=== PATIENT | female | born 1990 | race African-American/Black ===

== ENCOUNTER 2016-11-16 13:39 | Emergency (ER) | payer MEDICAID ==
[~2016-11-16] VITALS: Ht 162.6 cm; Wt 64.0 kg
[2016-11-16] MEDS ORDERED: ALBUTEROL (14:38)
[2016-11-16 14:48] VITALS: BP 129/83
== END 2016-11-16 18:56 | disposition home or self-care (01) ==
LOC: ER 18:49
DX: K08.89 Other specified disorders of teeth and supporting structures (principal); J45.909 Unspecified asthma, uncomplicated
CPT/HCPCS: 99283

== ENCOUNTER 2019-08-27 13:29 | Emergency (ER) | payer MEDICAID ==
[~2019-08-27] VITALS: Ht 162.6 cm; Wt 61.0 kg
[~2019-08-27 13:29] MED LIST: ALBUTEROL
[2019-08-27 23:11] LABS: BASOPHILS % 1.1 % (0.0-2.0); EOSINOPHILS % 4.1 % (0.0-5.0); HEMATOCRIT. 36.3 % (36.0-48.0); HEMOGLOBIN. 12.5 g/dL (12.0-16.0); LYMPHOCYTES % 43.7 % (20.0-50.0); MEAN CORPUSCULAR VOLUME 92.6 fL (81.0-99.0); MEAN PLATELET VOLUME 8.3 fl (7.4-10.4); MONOCYTES % 8.4 % (2.0-8.0); NEUTROPHILS % 42.7 % (40.0-76.0); PLATELET 263 x1000/uL (130-400); RED BLOOD CELL COUNT 3.92 mill/uL (4.2-5.4); RED CELL DISTRIBUTION WIDTH 13.1 % (11.6-14.6)
[2019-08-27 23:19] LABS: CHLORIDE 109 mEq/L (98-107)
[2019-08-27 23:21] VITALS: BP 123/81
[2019-08-27 23:21] LABS: HCG SCREEN NEGATIVE
[2019-08-27 23:29] LABS: B-HCG QUANTITATIVE < 1 mIU/mL (<3)
== END 2019-08-28 02:17 | disposition home or self-care (01) ==
LOC: ER 13:57
DX: N94.6 Dysmenorrhea, unspecified (principal); N83.209 Unspecified ovarian cyst, unspecified side; J45.909 Unspecified asthma, uncomplicated
CPT/HCPCS: 36415; 76830; 76856; 80053; 84702; 84703; 85025; 86850; 86900; 99284

== ENCOUNTER 2023-07-02 00:37 | Emergency (ER) | payer MEDICAID ==
[~2023-07-02] VITALS: Ht 162.6 cm; Wt 70.0 kg
[~2023-07-02 00:37] MED LIST changes: +FERR325T6 PO; +IBUP-2030 PO; +PV W1TAB21 PO
[2023-07-02 00:40] VITALS: O2SAT 100
[2023-07-02] MEDS ORDERED: KETOROLAC 30MG/ML VIAL IM ONE (01:30)
[2023-07-02 01:33] LABS: CLARITY URINE TURBID (CLEAR); COLOR URINE RED (YELLOW); GLUCOSE URINE NEGATIVE (NEGATIVE); KETONES URINE NEGATIVE (NEGATIVE); LEUKOCYTE ESTERASE URINE 2+ (NEGATIVE); NITRITE URINE NEGATIVE (NEGATIVE); OCCULT BLOOD URINE 3+ (NEGATIVE); PROTEIN URINE 2+ (NEGATIVE); SPECIFIC GRAVITY URINE 1.034 (1.005-1.030); UROBILINOGEN URINE 0.2 E.U./dL (0.2-1.0)
[2023-07-02 02:07] LABS: BACTERIA URINE TRACE; RBC URINE TNTC /hpf (0-2); SQUAMOUS EPITHELIAL CELL URINE FEW /lpf (RARE/1+)
[2023-07-02 02:13] LABS: BASOPHILS % 0.9 % (0.0-2.0); EOSINOPHILS % 2.4 % (0.0-5.0); HEMATOCRIT. 32.5 % (36.0-48.0); HEMOGLOBIN. 11.2 g/dL (12.0-16.0); LYMPHOCYTES % 27.5 % (20.0-50.0); MEAN CORPUSCULAR HEMOGLOBIN 31.7 pg (28.0-32.0); MEAN CORPUSCULAR HGB CONC 34.4 g/dL (31.0-37.0); MEAN CORPUSCULAR VOLUME 92.1 fL (81.0-99.0); MEAN PLATELET VOLUME 7.2 fl (7.4-10.4); MONOCYTES % 10.1 % (2.0-8.0); NEUTROPHILS % 59.1 % (40.0-76.0); PLATELET 370 x1000/uL (130-400); RED BLOOD CELL COUNT 3.53 mill/uL (4.2-5.4); RED CELL DISTRIBUTION WIDTH 12.9 % (11.6-14.6); WHITE BLOOD COUNT 5.4 x1000/uL (4.5-11.0)
[2023-07-02 02:29] LABS: ALANINE AMINOTRANSFERASE 22 IU/L (10-49); ASPARTATE AMINOTRANSFERASE 20 IU/L (<34); BILIRUBIN TOTAL 0.2 mg/dL (0.1-1.0); CALCIUM 9.2 mg/dL (8.7-10.4); CARBON DIOXIDE 27 mEq/L (21-32); CHLORIDE 107 mEq/L (98-107); CREATININE 0.7 mg/dL (0.6-1.0); GLUCOSE 93 mg/dL (70-105); POTASSIUM 3.5 mEq/L (3.5-5.1); PROTEIN TOTAL 7.7 g/dL (6.0-8.3); SODIUM 141 mEq/L (136-145); UREA NITROGEN BLOOD 10 mg/dL (9-23)
[2023-07-02] MEDS ORDERED: CEPHALEXIN 250MG CAPSULE PO ONE (02:30)
[2023-07-02] MEDS ORDERED: IBUP-2029 MT (02:34)
[2023-07-02] MEDS ORDERED: CEPH500C2 MT (02:34)
[2023-07-02 02:35] LABS: B-HCG QUANTITATIVE < 1 mIU/mL (<3)
[2023-07-02 03:10] VITALS: BP 127/85; PULSE 80; RESP 18; TEMP 98.3
== END 2023-07-02 03:10 | disposition home or self-care (01) ==
LOC: ER 00:44
DX: N39.0 Urinary tract infection, site not specified (principal); R10.2 Pelvic and perineal pain
CPT/HCPCS: 99285; 76830; 76856; 80053; 81003; 81025; 84702; 85025; 36415; 96372; J1885

== ENCOUNTER 2024-11-18 00:59 | Emergency (ER) | payer MEDICAID ==
[~2024-11-18] VITALS: Ht 162.6 cm; Wt 61.0 kg
[~2024-11-18 00:59] MED LIST changes: +CEPH500C2 MT; +IBUP-2029 MT
[2024-11-18 04:37] VITALS: PULSE 77; RESP 18; O2SAT 99
[2024-11-18] MEDS: ALBUTEROL (0.083%) 2.5MG/3ML NEB HHN STA (04:37)
[2024-11-18] MEDS: IPRATROPIUM BROMIDE (0.02%) 0.5MG/2.5ML NEB HHN STA (04:37)
[2024-11-18] MEDS: DEXAMETHASONE 4MG TABLET PO ONE (04:45)
[2024-11-18] MEDS ORDERED: ALBU18HF2 IH (05:31)
[2024-11-18 05:41] VITALS: BP 134/86; PULSE 118; RESP 20; TEMP 36.5; O2SAT 100
== END 2024-11-18 05:42 | disposition home or self-care (01) ==
LOC: ER 01:32
DX: R06.02 Shortness of breath (principal); I10 Essential (primary) hypertension; Z79.899 Other long term (current) drug therapy
CPT/HCPCS: 94640; 99283; J8540; Z7610 ×3; 94070; 94664; 98960